=== PATIENT | female | born 1970 | race Caucasian/White ===

== ENCOUNTER → 2018-06-10 | Outpatient (CLI) | payer BC ==
[~2018-06-10] MED LIST: FISH OIL1 CAP PO; MULT-1335 PO
--- NOTE | 2018-06-10 15:23 | RADIOLOGY IMAGING REPORT ---
FACILITY: [facility] [place] PATIENT NAME: GUICHO DE OLIVEIRA : [id number] MR: [id number]: [id number] EXAM DATE: [id number] ORDERING PHYSICIAN: SANCHEZ VIDALES TECHNOLOGIST: Sharlene Kimball PROCEDURE:BILATERAL DIGITAL SCREENING MAMMOGRAM WITH CAD ASSISTED INTERPRETATION & 3D TOMOSYNTHESIS COMPARISON:05/27/17 & priors to 05/19/14 INDICATIONS:SCREENING FINDINGS: Breast parenchyma is heterogeneously dense. There are no mammographic findings concerning for malignancy. No significant interval change. DIAGNOSTIC CATEGORY 1--NEGATIVE. RECOMMENDATIONS: ROUTINE MAMMOGRAM AND CLINICAL EVALUATION IN 1 YEAR. IMPRESSION: BIRADS 1: Negative. Dictated by: Bob Chauhan on 06/10/2018 at 14:21 Transcribed by: DAVID on 06/10/2018 at 14:44 Approved by: Bob Chauhan on 06/10/2018 at 15:22 [facility]
== END ==
LOC: MAMO 02:12
PROVIDERS: ATTEND Obstetrics & Gynecology
DX: Z12.31 Encounter for screening mammogram for malignant neoplasm of breast (principal)
CPT/HCPCS: 77063; 77067